=== PATIENT | male | born 1955 | race Caucasian/White ===

== ENCOUNTER 2023-10-13 10:16 | Outpatient (REF) | payer MEDICARE, MEDICAID, SELFPAY ==
[2023-10-13 15:05] LABS: HCT 51.2 % (40.0-50.0); HGB 16.3 g/dL (13.5-17.5); MCH 28.7 pg (27.0-33.0); MCHC 31.8 % (32.0-36.0); MCV 90 fL (80-95); MPV 10.2 fL (8.0-11.0); Platelet Count 182 10^3/uL (130-400); RBC 5.67 10^6/uL (4.36-5.78); RDW 14.4 % (11.8-14.1); RDW-SD 48.2 fL; WBC 7.02 10^3/uL (4.4-10.8)
[2023-10-13 15:26] LABS: ALT 30 U/L (16-63); AST 24 U/L (15-37); Albumin 3.9 g/dL (3.4-5.0); Alkaline Phosphatase 133 U/L (46-116); Anion Gap 4.5 mmol/L (3-11); BUN 22 mg/dL (7-18); Bilirubin, Total 0.4 mg/dL (0.2-1.0); CO2 29.5 mmol/L (21.0-32.0); CREATININE 1.3 mg/dL (0.70-1.30); Calcium 9.4 mg/dL (8.5-10.1); Calculated LDL 156 mg/dL (<100); Chloride 104 mmol/L (98-107); Cholesterol 228 mg/dL (<200); Estimated GFR 60.59 (mL/min/1.73m2); Glucose 92 mg/dL (74-106); HDL Cholesterol 38 mg/dL (40-60); Potassium 4.7 mmol/L (3.5-5.1); Sodium 138 mmol/L (136-145); Total Protein 8.8 g/dL (6.4-8.2); Triglyceride 173 mg/dL (<150)
[2023-10-13 16:30] LABS: Hemoglobin A1C 6.1 % (<5.7)
== END 2023-10-13 10:17 | disposition home or self-care (01) ==
LOC: NCHCN 10:16
PROVIDERS: Visit Provider Family Medicine
DX: F10.21 Alcohol dependence, in remission (principal); E66.3 Overweight; R73.09 Other abnormal glucose; R79.89 Other specified abnormal findings of blood chemistry; Z13.0 Encounter for screening for diseases of the blood and blood-forming organs and certain disorders involving the immune mechanism
CPT/HCPCS: 80053; 80061; 85027; 83036